=== PATIENT | female | born 1990 | race Caucasian/White ===

== ENCOUNTER 2022-10-21 13:55 | Emergency (ER) | payer MEDICAID ==
[~2022-10-21] VITALS: Ht 162.6 cm; Wt 77.2 kg
[~2022-10-21 13:55] MED LIST: PREN-129 OR
[2022-10-21 14:37] VITALS: BP 110/62
[2022-10-21] MEDS ORDERED: HYDROcodone-ACET 5/325MG TAB PO ONE (17:00)
[2022-10-21] MEDS ORDERED: IBUP800T27 PO (17:17)
== END 2022-10-21 17:34 | disposition home or self-care (01) ==
LOC: ER 13:55
DX: S76.011A Strain of muscle, fascia and tendon of right hip, initial encounter (principal); S83.91XA Sprain of unspecified site of right knee, initial encounter; Z79.1 Long term (current) use of non-steroidal anti-inflammatories (NSAID); Z79.899 Other long term (current) drug therapy; Z88.8 Allergy status to other drugs, medicaments and biological substances; Z91.040 Latex allergy status; Z91.013 Allergy to seafood; W01.0XXA Fall on same level from slipping, tripping and stumbling without subsequent striking against object, initial encounter; Y93.89 Activity, other specified; Y92.89 Other specified places as the place of occurrence of the external cause; Y99.8 Other external cause status
CPT/HCPCS: 73502; 73562

== ENCOUNTER 2023-04-03 15:31 | Emergency (ER) | payer MEDICAID, OTHER ==
[~2023-04-03] VITALS: Ht 162.6 cm; Wt 80.3 kg
[~2023-04-03 15:31] MED LIST changes: +IBUP-1456 PO
[2023-04-03 16:16] VITALS: BP 125/63; PULSE 82; RESP 18; TEMP 98.1; O2SAT 97
[2023-04-03] MEDS ORDERED: IBUP1TAB5 PO (16:36)
== END 2023-04-03 16:47 | disposition home or self-care (01) ==
LOC: ER 15:31
DX: S50.12XA Contusion of left forearm, initial encounter (principal); Z91.040 Latex allergy status; Z79.1 Long term (current) use of non-steroidal anti-inflammatories (NSAID); Z91.041 Radiographic dye allergy status; Z79.899 Other long term (current) drug therapy; W20.8XXA Other cause of strike by thrown, projected or falling object, initial encounter; Y93.89 Activity, other specified; Y92.89 Other specified places as the place of occurrence of the external cause; Y99.0 Civilian activity done for income or pay
CPT/HCPCS: 73070; 73090

== ENCOUNTER 2023-07-07 23:08 | Emergency (ER) | payer MEDICAID, OTHER ==
[~2023-07-07] VITALS: Ht 162.6 cm; Wt 7.8 kg
[~2023-07-07 23:08] MED LIST changes: +IBUP1TAB5 PO
[2023-07-07 23:36] VITALS: BP 101/47; PULSE 87; TEMP 99.5
[2023-07-08 00:09] LABS: Rapid Influenza A Negative (Negative); Rapid Influenza B Negative (Negative)
[2023-07-08 00:10] LABS: COVID19 ANTIGEN SOFIA FIA NEGATIVE (NEGATIVE)
[2023-07-08 00:38] LABS: Rapid Strep A Screen-Throat Negative
[2023-07-08] MEDS ORDERED: IPRATROPIUM BROM 0.5 MG/2.5ML INH SOL NEB ONE (00:45)
[2023-07-08] MEDS ORDERED: DexAMETHasone SOD PHOS 10MG/1ML VIAL INJ IM ONE (00:45)
[2023-07-08] MEDS ORDERED: ALBUTEROL SULF 2.5 MG/0.5ML(0.5%) NEB SOLN NEB ONE (00:45)
[2023-07-08] MEDS ORDERED: ALBUTEROL MEDNEB 2.5 mg/3ml NEB ONE (00:47)
[2023-07-08] MEDS ORDERED: IBUPROFEN 800 MG TAB PO ONE (01:00)
[2023-07-08] MEDS ORDERED: ONDANSETRON ODT 4 MG TAB PO ONE (01:00)
[2023-07-08] MEDS ORDERED: BENZLOZ2 MT (01:05)
[2023-07-08] MEDS ORDERED: AZITTAB PO (01:05)
[2023-07-08] MEDS ORDERED: PRED20TA2 PO (01:05)
[2023-07-08] MEDS ORDERED: BENZ200C64 PO (01:05)
[2023-07-08] MEDS ORDERED: ALBUAER3 IN (01:05)
[2023-07-08] MEDS ORDERED: ZOFR4T PO (01:05)
[2023-07-08 01:08] VITALS: RESP 20; O2SAT 96
== END 2023-07-08 01:33 | disposition home or self-care (01) ==
LOC: ER 23:08
DX: J20.9 Acute bronchitis, unspecified (principal); J02.9 Acute pharyngitis, unspecified; Z20.822 Contact with and (suspected) exposure to COVID-19
CPT/HCPCS: 36415; 87070; 87426; 87804; 87880; 94640; 96372; 99283; J1100; J7644; Q0162

== ENCOUNTER 2024-12-09 13:53 | Emergency (ER) | payer OTHER, MEDICAID ==
[~2024-12-09] VITALS: Ht 162.6 cm; Wt 83.3 kg
[~2024-12-09 13:53] MED LIST changes: +ALBUAER3 IN; +AZITTAB PO; +BENZ200C64 PO; +BENZLOZ2 MT; +PRED20TA2 PO; +ZOFR4T PO
--- NOTE | 2024-12-09 14:04 | ED.PDOC ---
Sosa. trauma (HPI) HPI Comments 34 y.o female presents to the ED for an evaluation of left forearm injury s/p trauma one hour ago. Patient reports a metal piece of equipment fell onto her forearm causing strain and stiffness. Patient denies any numbness or tingling sensation, lacerations, abrasions. Patient is able to move all digits. Chief Complaint: Upper Extremity Time Seen by MD: 13:58 Primary Care Provider: Knight Reviewed notes: Nurses Notes, Medications, Allergies Allergies: Coded Allergies: Iodine (Verified Allergy, Mild, 11/06/13) break out in rash Latex (Verified Allergy, Mild, 11/06/13) states she breaks out in a rash Uncoded Allergies: SHELLFISH (Allergy, Severe, VOMITING, 11/06/13) throat swells Home Meds Active Scripts Benzocaine-Menthol (Mouth-Thro (Cepacol Sore Throat) 1 Lalo Lalo, 1 LALO MT Q6HR, #24 LALO as needed for sorethroat Prov:WINSTON KAYE MOTHER REPAIRER 07/08/23 Benzonatate (Benzonatate) 200 Mg Cap, 1 CAP PO TID, #30 CAP as neede for cough Prov:WINSTON KAYE NP 07/08/23 Albuterol Sulfate (VENTOLIN MDI) 90 Mcg Ih, 1 PUFF IN Q4HR, #1 INH as needed fo shortnes of breath and wheezing Prov:WINSTON KAYE MOTHER REPAIRER 07/08/23 Prednisone (Prednisone) 20 Mg Tab, 1 TAB PO DAILY for 5 Days, #6 MG start tomorrow for 5 days Prov:WINSTON KAYE MOTHER REPAIRER 07/08/23 Azithromycin (Zithromax Z-Robert) 250 Mg Tab, 1 TAB PO DAILY for 5 Days, #6 TAB 2 tablets today then 1 tablet start tomorrow for 4 days Prov:WINSTON KAYE MOTHER REPAIRER 07/08/23 Ondansetron Odt 4MG Tab (ZOFRAN PO) 4 Mg Tb, 1 TAB PO Q8HR, #20 TAB ODT TAB-DISSOLVE IN MOUTH, THEN SWALLOW as needed for nausea vomiting Prov:WINSTON KAYE MOTHER REPAIRER 07/08/23 Ibuprofen Micronized (Ibuprofen) 600 Mg Tab, 600 MG PO Q6HPRN PRN for 5 Days, #20 TAB Prov:JAMES NUNES MOTHER REPAIRER 04/03/23 Ibuprofen (Ibuprofen) 800 Mg Tab, 1 TAB PO TID, #30 TAB Prov:UBALDO CARO PA 10/21/22 Reported Medications Vit W/ Ferrous Fumara () Tab, 1 OR DAILY, TAB 11/06/13 Information Source: Patient Mode of Arrival: Ambulatory Severity: Moderate Timing: Hours (1) Duration: Since onset Location: (L) Forearm Location of laceration: None Mechanism: Blunt trauma Associated signs and symtoms: Other Past Medical History PAST MEDICAL HISTORY: Hypotension Surgical History: Appendectomy, Cholecystectomy, Hysterectomy, Tonsillectomy MANUFACTURING SUPPORT ENGINEER History: No Pertinent MANUFACTURING SUPPORT ENGINEER History Family History Family History: Family hx of HTN, Family hx of stroke Social History Smoker: Quit Less Than 1 Year Alcohol: Denies ETOH Use Drugs: Marijuana Lives In: Home Constitutional: denies: chills, diaphoresis, fatigue, fever, malaise, sweats, weakness, others EENTM: denies: blurred vision, double vision, ear bleeding, ear discharge, ear drainage, ear pain, ear ringing, eye pain, eye redness, hearing loss, mouth pain, mouth swelling, nasal discharge, nose bleeding, nose congestion, nose pain, photophobia, tearing, throat pain, throat swelling, voice changes, others Respiratory: denies: cough, hemoptysis, orthopnea, SOB at rest, shortness of breath, SOB with excertion, stridor, wheezing, others Cardiovascular: denies: chest pain, dizzy spells, diaphoresis, Dyspnea on exer tion, edema, irregular heart beat, left arm pain, lightheadedness, palpitations, PND, syncope, others Gastrointestinal: denies: abdomen distended, abdominal pain, blood streaked bowels, constipated, diarrhea, dysphagia, difficulty swallowing, hematemesis, melena, nausea, poor appetite, poor fluid intake, rectal bleeding, rectal pain, vomiting, others Genitourinary: denies: abnormal vagina bleeding, burning, dyspareunia, dysuria, flank pain, frequency, hematuria, incontinence, pain, , vagina discharge, urgency, others Neurological: denies: dizziness, fainting, headache, left sided numbness, left sided weakness, numbness, paresthesia, pre-existing deficit, right sided numbness, right sided weakness, seizure, speech problems, tingling, tremors, weakness, others Musculoskeletal: reports: others (left forearm pain ); denies: back pain, gout, joint pain, joint swelling, muscle pain, muscle stiffness, neck pain Integumetry: denies: bruises, change in color, change in hair/nails, dryness, laceration, lesions, lumps, rash, wounds, others Allergic/Immunocompromised: denies: Difficulty Healing, Frequent Infections, Hives, Itching, others Hematologic/Lymphatic: denies: anemia, blood clots, easy bleeding, easy bruising, swollen glands, others Endocrine: denies: excessive hunger, excessive sweating, excessive thirst, excessive urination, flushing, intolerance to cold, intolerance to heat, unexplained weight gain, unexplained weight loss, others Psychiatric: denies: anxiety, bipolar disorder, depression, hopeless, panic disorder, schizophrenia, sleepless, suicidal, others All Other Systems: Reviewed and Negative Physical Exam General Appearance: No Apparent Distress HEENT: Normal ENT Inspection, Pharynx Normal, TMs Normal Neck: Full Range of Motion, Non-Tender, Normal, Normal Inspection Respiratory: Chest Non-Tender, Lungs Clear, No Accessory Muscle Use, No Respiratory Distress, Normal Breath Sounds Cardiovascular: No Edema, No JVD, No Murmur, No Gallop, Normal Peripheral Pulses, Regular Rate/Rhythm Breast Exam: Deferred Gastrointestinal: No Organomegaly, Non Tender, No Pulsatile Mass, Normal Bowel Sounds, Soft Genitalia: Deferred Pelvic: Deferred Rectal: Deferred Extremities: No calf tenderness, Normal capillary refill, No pedal edema, Tender (Tenderness to the left forearm but no sign of any deformity for her neurovascular compromise) Musculoskeletal : Apperance: Normal Neurologic: Alert, production helper II-XII nml as Tested, No Motor Deficits, Normal Affect, Normal Mood, No Sensory Deficits Cerebellar Function: Normal Reflexes: Normal Skin: Dry, Normal Color, Warm Lymphatic: No Adenopathy Was a procedure done? Was a procedure done?: No Differential Diagnosis Multiple Trauma: Fractures, Contusion, Other (strain, sprain) X-Ray, Labs, Meds, VS Vital Signs Date Time Temp Pulse Resp B/P (MAP) Pulse Ox O2 Delivery O2 Flow Rate FiO2 12/09/24 13:58 98.0 78 18 107/42 (63) 95 98.0 12/09/24 13:58 78 18 95 Room Air 12/09/24 13:58 98.0 78 18 107/42 (63) 95 98.0 X-ray of the left forearm is negative for any fracture The patient was being placed in a sling and is being discharged The patient was taken off work for the next two days and [place] [facility] The patient was given ibuprofen 600 mg by mouth for the pain Images Reviewed?: Images reviewed and evaluated by me Time of 1ST Reevaluation: 14:01 Reevaluation 1ST: Unchanged Time of 2ND Reevaluation: 14:45 Reevaluation 2ND: Improved Patient Education/Counseling: Diagnosis, Treatment, Prognosis, Need For Follow Up Family Education/Counseling: No Family Present Departure 1 Departure Time of Disposition: 14:45 Impression: Primary Impression: Contusion of left forearm, initial encounter Disposition: 01 HOME / SELF CARE / HOMELESS Condition: Fair Discharged With: Self Critical Care Note Critical Care Time?: No Stability Stability form required: No I personally scribed for MALGORZATA GALVAN MD ([email or web address]) on 12/09/24 at 14:04. Electronically submitted by Chantell Chiang ([facility]). MALGORZATA GALVAN MD Dec 09, 2024 14:04
--- NOTE | 2024-12-09 14:38 | DVH ---
CLINICAL INDICATION: trauma TECHNIQUE: 2 radiographic views of the left forearm were obtained. Comparison: XY L FOREARM XRAY on DOS: 04/03/23 FINDINGS/IMPRESSION: There is no evidence of acute fracture or dislocation. The visualized joint space is well maintained. The alignment is anatomical. There is no radiopaque foreign body.
[2024-12-09] MEDS: IBUPROFEN 800 MG TAB PO ONE (14:53)
[2024-12-09 14:55] VITALS: BP 95/64; PULSE 70; RESP 18; TEMP 98.4; O2SAT 98
== END 2024-12-09 15:05 | disposition home or self-care (01) ==
LOC: ER 13:53
DX: S50.12XA Contusion of left forearm, initial encounter (principal); F12.90 Cannabis use, unspecified, uncomplicated; Z90.710 Acquired absence of both cervix and uterus; Z88.8 Allergy status to other drugs, medicaments and biological substances; Z90.49 Acquired absence of other specified parts of digestive tract; Z91.040 Latex allergy status; X58.XXXA Exposure to other specified factors, initial encounter; Y93.89 Activity, other specified; Y92.89 Other specified places as the place of occurrence of the external cause; Y99.8 Other external cause status
CPT/HCPCS: 73090